=== PATIENT | female | born 1980 | race Caucasian/White ===

== ENCOUNTER 2017-03-19 10:51 | Emergency (ER) | payer OTHER ==
[~2017-03-19] VITALS: Ht 167.6 cm; Wt 93.6 kg
[2017-03-19 11:33] LABS: EOSINOPHIL (%) 1.8 % (0-5); EOSINOPHIL COUNT 0.2 K/uL (0-0.3); HEMATOCRIT 44.5 % (36.0-46.0); IMMATURE GRANULOCYTE (%) 0.4 % (0.0-0.7); INSTRUMENT ABS NEUTROPHIL CT 7.8 K/uL; LYMPHOCYTE COUNT 2.4 K/uL (1.0-2.8); MCH 31.8 PG (29.0-34.0); MCHC 36.4 G/DL (30.0-36.0); MCV 87.4 FL (83-99); MONOCYTE COUNT 0.6 K/uL (0-0.8); NEUTROPHIL (%) 70.9 % (45-76); NEUTROPHIL COUNT 7.8 K/uL (1.8-6.4); PLATELET COUNT 198 K/uL (156-360); RBC DIS.WIDTH-CV 11.4 % (11.8-14.6); RBC DIS.WIDTH-SD 36.8 % (39-53); RED BLOOD COUNT 5.09 M/uL (3.80-5.20)
[2017-03-19 11:43] LABS: CHLORIDE 109 mEq/L (99-109); POTASSIUM 3.9 mEq/L (3.7-5.4); SODIUM 140 mEq/L (136-147)
[2017-03-19 11:45] LABS: GLUCOSE 95 mg/dL (70-99)
[2017-03-19 11:46] LABS: ANION GAP 13 MEQ/L (2-14)
[2017-03-19 11:47] LABS: TOTAL BILIRUBIN 0.4 mg/dL (0.0-1.0)
[2017-03-19 11:49] LABS: ALKALINE PHOSPHATASE 47 IU/L (3-129); GFR ESTIMATE (CALCULATED) > 59 mL/min/
[2017-03-19 11:50] LABS: UREA NITROGEN (BUN) 9 mg/dL (9-23)
[2017-03-19 11:52] LABS: LIPASE 60 U/L (1.0-51.0)
[2017-03-19 12:00] LABS: ADD MIUA? NO; BILIRUBIN NEGATIVE; BLOOD NEGATIVE; COLOR YELLOW ((YELLOW)); GLUCOSE (STRIP) NEGATIVE; KETONES NEGATIVE; LEUKOCYTES NEGATIVE; NITRITE NEGATIVE; PROTEIN (STRIP) NEGATIVE; SPECIFIC GRAVITY 1.004 (1.000-1.030); UCUL ADDED? NO; UROBILINOGEN 0.2 MG/DL (0.2-1.0)
[2017-03-19] MEDS ORDERED: ZESTORETIC 20-1 EAC1 PO (12:54)
[2017-03-19] MEDS ORDERED: ESCITALOPRAM OX20 MG PO (12:54)
[2017-03-19] MEDS ORDERED: ZOFRAN ODT4 MG PO (14:25)
[2017-03-19 14:56] VITALS: BP 111/63
== END 2017-03-19 14:56 | disposition home or self-care (01) ==
LOC: EME → EDBD 10:51 → EME 14:56
PROVIDERS: Emergency Medicine
DX: R10.10 Upper abdominal pain, unspecified (principal); R11.2 Nausea with vomiting, unspecified; I10 Essential (primary) hypertension; Z88.6 Allergy status to analgesic agent
CPT/HCPCS: 74177; 80053; 81003; 83690; 85025; 99281; 99285; J2405; J3010; J7030